=== PATIENT | male | born 1970 | race Caucasian/White ===

== ENCOUNTER 2019-05-27 10:05 | Outpatient (REF) | payer MEDICAID, SELFPAY ==
[2019-05-27 21:35] LABS: Hemoglobin A1C 6.4 % (4.5-6.2)
[2019-05-27 21:38] LABS: Anion Gap 13.1 mmol/L (3-11); BUN 10 mg/dL (7-18); CO2 23.9 mmol/L (21.0-32.0); CREATININE 0.87 mg/dL (0.70-1.30); Calcium 9.1 mg/dL (8.5-10.1); Calculated LDL 176 mg/dL; Chloride 102 mmol/L (98-107); Cholesterol 239 mg/dL (<200); Glucose 207 mg/dL (74-106); HDL Cholesterol 32 mg/dL (40-60); Potassium 4.6 mmol/L (3.5-5.1); Sodium 139 mmol/L (136-145); Triglyceride 157 mg/dL (<150)
[2019-05-27 21:41] LABS: COMMENT (LAB VIEW ONLY) 32.05 mg/dL; Microalb ug/mg Crea 12.5 ug/mg Cr
== END 2019-05-27 10:25 ==
LOC: NCHCN 10:05
PROVIDERS: PCP Internal Medicine; Visit Provider Internal Medicine
DX: F32.1 Major depressive disorder, single episode, moderate (principal); G89.29 Other chronic pain; Z13.220 Encounter for screening for lipoid disorders; Z13.1 Encounter for screening for diabetes mellitus
CPT/HCPCS: 80048; 80061; 82043; 82570; 83036